=== PATIENT | female | born 1940 | race Caucasian/White ===

== ENCOUNTER 2020-04-17 09:36 | Emergency (ER) | payer OTHER ==
[2020-04-17] MEDS ORDERED: Ketorolac Tromethamine 30 MG/ML VIAL ONE (10:25)
[2020-04-17] MEDS ORDERED: Ondansetron PF 4 MG/2 ML Vial ONE ×2 (10:25→13:56)
[2020-04-17 10:35] LABS: #Eosinphils 0.1 thou/uL (0.0-0.7); #Lymphocytes 1.7 thou/uL (1.20-3.40); #Monocytes 0.7 thou/uL (0.11-0.59); #Neutrophils 8.1 thou/uL (1.40-6.50); %Basophils 0.3 % (0.0-1.0); %Eosinophils 0.7 % (0.0-10.0); %Lymphocytes 15.7 % (21.0-51.0); %Monocytes 6.7 % (0.0-10.0); %Neutrophils 76.6 % (42.0-75.0); Hemoglobin 13.9 g/dL (12.0-16.0); Mean Corpuscular HGB CONC 33.5 g/dL (32.0-36.0); Mean Corpuscular Hemoglobin 29.1 pg (27.0-31.0); Mean Platelet Volume 10.6 fL (7.4-10.4); Platelet Count 196 thou/uL (130-400); RBC Distribution Width 11.5 % (11.5-14.5); Red Blood Cell (RBC) Count 4.79 mill/uL (4.20-5.40); White Blood Cell (WBC) Count 10.6 thou/uL (4.8-10.8)
[2020-04-17 10:53] LABS: ALT (SGPT) 11 U/L (8-55); AST (SGOT) 18 U/L (5-34); Alkaline Phosphatase 68 U/L (40-110); Anion Gap 14 mmol/L (10-20); BUN (Urea Nitrogen) 9 mg/dL (9.8-20.1); Bilirubin, Total 0.6 mg/dL (0.2-1.2); Calc. Creatinine Clearance 0 mL/min (70-130); Calcium 9.3 mg/dL (7.8-10.44); Carbon Dioxide 25 mmol/L (23-31); Chloride 96 mmol/L (98-107); Estimated GFR-MDRD 83; Globulin 3.4 g/dL (2.4-3.5); Glucose 115 mg/dL (83-110); Lipase 15 U/L (8-78); Potassium 3.9 mmol/L (3.5-5.1); Protein, Total 7.4 g/dL (6.0-8.3); Sodium 131 mmol/L (136-145)
--- NOTE | 2020-04-17 13:40 | CT ---
CT ABDOMEN AND PELVIS WITH ORAL AND IV CONTRAST: 04/17/20 HISTORY: Abdominal pain. FINDINGS: There is bilateral hilar lymphadenopathy in the visualized portions of the chest. A 4.5 cm mass is se en in the posterior aspect of the right lower lobe and a 2.7 cm mass is seen in the peripheral aspect of the left lower lobe. The liver, spleen, pancreas, adrenal glands and kidneys appear normal. There is a 12 mm solid nodule posterior and inferior to the left kidney. There is a fat plane between this nodule and the renal co rtex, indicating it is separate from the kidney. No calcified gallstones are seen. The small bowel loops are not abnormally dilated. There is colonic diverticulosis without diverticulitis. There is fecal material in the colon. There are vascular calcifications without evidence of aneurysmal dilatation of the abdominal aorta. M ultilevel degenerative changes are seen. No osteolytic or osteoblastic lesions are noted. There is ma rked compression of T11 vertebral body. There is also mild compression of T10 and T12 vertebrae The p atient is post hysterectomy. IMPRESSION: 1. Bilateral hilar lymphadenopathy, bilateral lung masses and nodular density in the left retrop eritoneum are highly suspicious for malignancy/metastatic disease. 2. Colonic diverticulosis. Discussed over the telephone with ER physician, Dr. Vic Handy at 12?43 p.m. POS: THONY
[2020-04-17] MEDS ORDERED: Morphine 4 MG/ML VIAL ONE (13:56)
[2020-04-17] MEDS ORDERED: Iopamidol 370 76% 50 ML VIAL FS ONE (14:10)
[2020-04-17] MEDS ORDERED: Iopamidol-370 76% 500 ML 1 ML ONE (14:10)
== END 2020-04-17 14:53 | disposition home or self-care (01) ==
LOC: ERS 09:36
DX: K59.00 Constipation, unspecified (principal); R91.8 Other nonspecific abnormal finding of lung field; Z79.899 Other long term (current) drug therapy
CPT/HCPCS: 36415; 74177; 80053; 83690; 84484; 85025; 93005; 96372; 96374; 96375; 96376; J0500; J1885; J2270; J2405; Q9967

== ENCOUNTER 2020-05-13 08:49 | Day surgery (SDC) | payer OTHER ==
[2020-05-13 09:19] LABS: PTT 31.5 sec (22.9-36.1); Prothrombin Time 13.2 sec (12.0-14.7)
[2020-05-13 11:38] VITALS: BMI 22.3
[2020-05-13 11:46] VITALS: BP 135/65; TEMP 98.7
--- NOTE | 2020-05-13 12:02 | RAD ---
Chest 2 views inspiratory expiratory HISTORY: Lung mass. Biopsy. FINDINGS: Cardiac silhouette and pulmonary vasculature are unremarkable. Mediastinum is midline with aortic calcification. Lobular masses involving each lower lobe correlate with those on recent CT. Lungs are well-inflated. No evidence of pneumothorax. Oblique line across the medial aspect of the ri ght chest favored to represent extrinsic artifact. IMPRESSION : No evidence of pneumothorax.
--- NOTE | 2020-05-13 12:07 | CT ---
CT-guided right lung mass biopsy Conscious sedation: At least 30 minutes spent with patient for conscious sedation. FINDINGS: After explaining the procedure and answering all questions, the mass at the posterior aspec t of the right lower lobe was visualized with patient in left lateral decubitus position. Sterile technique, buffered local anesthesia, CT guidance, conscious sedation, and a right posterior approach were used to carefully advance the tip of a 19-gauge trocar needle into the pleural-based mass. Position confirmed with CT. A total of 3 20-gauge core biopsy specimens were obtained and submitted to Dr. Leslie from pathology w ho confirmed specimen adequacy. Needle was removed. No evidence of complication. Patient tolerated the procedure well and was returned to the holding area in good condition for further monitoring. IMPRESSION : Technically successful CT-guided biopsy right lower lobe mass. Pathology is pending.
--- NOTE | 2020-05-13 13:37 | RAD ---
EXAM: Chest 2 views: HISTORY: Evaluate for pneumothorax status post lung biopsy COMPARISON: 05/13/2020 FINDINGS: There is a normal-sized cardiomediastinal silhouette. Inspiratory and expiratory view shows no evide nce of pneumothorax. Multiple scattered masses are seen in the lungs. No acute osseous abnormality. IMPRESSION: 1. No pneumothorax visualized 2. Multifocal scattered pulmonary masses.
--- NOTE | 2020-05-14 09:27 | CT ---
CT-guided right lung mass biopsy Conscious sedation: At least 30 minutes spent with patient for conscious sedation. FINDINGS: After explaining the procedure and answering all questions, the mass at the posterior aspec t of the right lower lobe was visualized with patient in left lateral decubitus position. Sterile technique, buffered local anesthesia, CT guidance, conscious sedation, and a right posterior approach were used to carefully advance the tip of a 19-gauge trocar needle into the pleural-based mass. Position confirmed with CT. A total of 3 20-gauge core biopsy specimens were obtained and submitted to Dr. Leslie from pathology w ho confirmed specimen adequacy. Needle was removed. No evidence of complication. Patient tolerated the procedure well and was returned to the holding area in good condition for further monitoring. IMPRESSION : Technically successful CT-guided biopsy right lower lobe mass. Pathology is pending. Transcribed Date/Time: 05/14/2020 9:27 AM
== END 2020-05-13 13:42 | disposition home or self-care (01) ==
LOC: CT 08:49
PROVIDERS: ATTEND Internal Medicine Critical Care Medicine
PROC: 0BBF3ZX Excision of Right Lower Lung Lobe, Percutaneous Approach, Diagnostic (ICD-10-PCS; principal; 2020-05-13)
DX: C34.31 Malignant neoplasm of lower lobe, right bronchus or lung (principal); F17.290 Nicotine dependence, other tobacco product, uncomplicated; E11.9 Type 2 diabetes mellitus without complications; E03.9 Hypothyroidism, unspecified; J44.9 Chronic obstructive pulmonary disease, unspecified; K21.9 Gastro-esophageal reflux disease without esophagitis; M19.90 Unspecified osteoarthritis, unspecified site; Z79.82 Long term (current) use of aspirin; Z79.84 Long term (current) use of oral hypoglycemic drugs; Z79.899 Other long term (current) drug therapy
CPT/HCPCS: 32405; 36415; 71045; 77012; 85610; 85730; 88305; 88333; 88334